=== PATIENT | male | born 1990 | race Caucasian/White ===

== ENCOUNTER 2017-08-18 17:48 | Emergency (ER) | payer OTHER ==
[~2017-08-18] VITALS: Ht 180 cm; Wt 90.7 kg
[2017-08-18 18:23] LABS: URINE BILIRUBIN NEGATIVE (Negative); URINE BLOOD TRACE (Negative); URINE CLARITY SL CLOUDY; URINE COLOR YELLOW; URINE GLUCOSE-RANDOM NEGATIVE (Negative); URINE KETONES NEGATIVE (Negative); URINE NITRITE-REFLEX NEGATIVE (Negative); URINE PROTEIN NEGATIVE (Negative); URINE SPECIFIC GRAVITY 1.015 (1.005-1.030); URINE UROBILINOGEN 0.2 E.U./dl (0.2-1.0)
[2017-08-18 18:24] LABS: URINE LEUKOCYTES-REFLEX 3+ (Negative)
[2017-08-18] MEDS ORDERED: DOXYCYCLINE 10100 MG PO (18:27)
[2017-08-18 18:36] VITALS: BP 151/91
[2017-08-18 18:39] LABS: BACTERIA-REFLEX None Seen /HPF (None Seen); CASTS None Seen /LPF (None Seen); CRYSTALS None Seen /LPF (None Seen); MUCUS 0-3 Light strn/LPF (None Seen); SQUAMOUS 0-3 Few /LPF (0-3); URINE RBC 0-2 Rare /HPF (0-2); URINE WBC-REFLEX >25 Many /HPF (0-5)
== END 2017-08-18 18:38 | disposition home or self-care (01) ==
LOC: M.ERS 17:48
PROVIDERS: Nurse Practitioner Family
DX: N39.0 Urinary tract infection, site not specified (principal)

== ENCOUNTER 2020-12-28 10:37 | Emergency (ER) | payer OTHER ==
[~2020-12-28] VITALS: Ht 172.7 cm; Wt 90.7 kg
[~2020-12-28 10:37] MED LIST: DOXYCYCLINE 10100 MG PO
[2020-12-28] MEDS ORDERED: DOXYCYCLINE 10100 MG PO (10:55)
[2020-12-28] MEDS ORDERED: SUPRAX400 M1 PO ×2 (10:55→11:14)
[2020-12-28 11:17] VITALS: BP 122/76
== END 2020-12-28 11:17 | disposition home or self-care (01) ==
LOC: M.ERS 10:37
DX: R36.9 Urethral discharge, unspecified (principal); R21 Rash and other nonspecific skin eruption; Z20.2 Contact with and (suspected) exposure to infections with a predominantly sexual mode of transmission